=== PATIENT | male | born 1995 | race Caucasian/White ===

== ENCOUNTER 2017-01-04 21:11 | Emergency (ER) | payer SELFPAY ==
[2017-01-04] MEDS ORDERED: SODIUM CHLOR 0.9% 1000 ML INJ 1,000 ML IV ONE (21:21)
[2017-01-04 21:23] LABS: MEAN CORPUSCULAR HGB CONC 36.1 % (32.0-36.0)
[2017-01-04 21:28] VITALS: BP 136/74; PULSE 78; RESP 16; TEMP 97.7; O2SAT 100
[2017-01-04] MEDS ORDERED: PANTOPRAZOLE SODIUM 40 MG VIAL IVP ONE (21:30)
[2017-01-04] MEDS ORDERED: ONDANSETRON HCL 4 MG/2 ML VIAL IVP ONE (21:30)
[2017-01-04] MEDS ORDERED: LIDOCAINE VISCOUS 2% SOLN 15 ML UDC PO ONE (21:30)
[2017-01-04] MEDS ORDERED: FAMOTIDINE 20 MG/2 ML VIAL IV PUSH ONE (21:30)
[2017-01-04] MEDS ORDERED: ALUMINUM/MAGNESIUM/SIMETH 30 ML CUP PO ONE (21:30)
--- NOTE | 2017-01-04 21:42 | PD ---
HPI Chief Complaint: Abdominal Pain Time Seen by Provider: 21:39 Travel History International Travel<30 days: No Contact w/Intl Traveler<30days: No Traveled to known affect area: No History of Present Illness HPI 21-year-old male that presents to the ED via ambulance for evaluation of nausea vomiting and diarrhea. Per patient is started today about 2-3 hours ago. Per patient him and a coworker went to [employer] restaurant had some chicken. Per patient he felt fine afterwards but for the past 2-3 hours she's been throwing up and having diarrhea. Per patient he has severe epigastric pain when he has a bowel movement. Per patient he denies any blood. Patient has been throwing up yellow fluid. She denies any chest pain or shortness of breath. Some abdominal pain on the epigastric area. Pain per patient is 5 out of 10. He denies any blood in the diarrhea. He denies any urinary issues. No back pain. No fevers chills or sweats. No sick contacts. Per patient he cannot think of anything else that he might have eaten. Per patient his coworkers also sick but not as bad as him. He has no allergies to medication. He has not taken anything for this. He was given Zofran by [facility] Past Medical History ADHD: Yes Diminished Hearing: No Immunizations Current: Yes (school shots utd) Social History Alcohol Use: No Tobacco Use: No Substance Use: No Allergies-Medications (Allergen,Severity, Reaction): Coded Allergies: No Known Allergies (Verified , 06/08/13) Reported Meds & Prescriptions Reported Meds & Active Scripts Active No Active Prescriptions or Reported Medications Review of Systems Except as stated in HPI: all other systems reviewed are Neg Physical Exam Narrative GENERAL: SKIN: Warm and dry. HEAD: Atraumatic. Normocephalic. EYES: Pupils equal and round. No scleral icterus. No injection or drainage. ENT: No nasal bleeding or discharge. Mucous membranes pink and moist. Tongue is midline. No uvula deviation. NECK: Trachea midline. No JVD. CARDIOVASCULAR: Regular rate and rhythm. No murmurs, S3, S4. RESPIRATORY: No accessory muscle use. Clear to auscultation. Breath sounds equal bilaterally. GASTROINTESTINAL: Abdomen soft, tender to palpation on the epigastric region, nondistended. Hepatic and splenic margins not palpable. MUSCULOSKELETAL: Extremities without clubbing, cyanosis, or edema. No obvious deformities. Full range of motion of the upper and lower extremities bilaterally. 2+ pulses bilaterally. NEUROLOGICAL: Awake and alert. No obvious cranial nerve deficits. Motor grossly within normal limits. Five out of 5 muscle strength in the arms and legs. Normal speech. PSYCHIATRIC: Appropriate mood and affect; insight and judgment normal. Data Data Last Documented VS Vital Signs Date Time Temp Pulse Resp B/P Pulse Ox O2 Delivery O2 Flow Rate FiO2 01/04/17 21:28 97.7 78 16 136/74 100 Orders Complete Blood Count With Diff (01/04/17 21:21) Comprehensive Metabolic Panel (01/04/17 21:21) Lipase (01/04/17 21:21) Iv Access Insert/Monitor (01/04/17 21:21) Sodium Chlor 0.9% 1000 Ml Inj (Ns 1000 M (01/04/17 21:21) Ondansetron Inj (Zofran Inj) (01/04/17 21:30) Pantoprazole Inj (Protonix Inj) (01/04/17 21:30) Famotidine Inj (Pepcid Inj) (01/04/17 21:30) Al-Mag Hy-Si 40-40-4 Mg/Ml Liq (Mag-Al P (01/04/17 21:30) Lidocaine 2% Viscous (Xylocaine 2% Visco (01/04/17 21:30) Labs Laboratory Tests Test 01/04/17 21:23 White Blood Count 19.0 TH/MM3 Red Blood Count 5.40 MIL/MM3 Hemoglobin 16.1 GM/DL Hematocrit 44.5 % Mean Corpuscular Volume 82.4 FL Mean Corpuscular Hemoglobin 29.7 PG Mean Corpuscular Hemoglobin 36.1 % Concent Red Cell Distribution Width 12.6 % Platelet Count 308 TH/MM3 Mean Platelet Volume 8.5 FL Neutrophils (%) (Auto) 89.7 % Lymphocytes (%) (Auto) 5.2 % Monocytes (%) (Auto) 4.4 % Eosinophils (%) (Auto) 0.5 % Basophils (%) (Auto) 0.2 % Neutrophils # (Auto) 17.0 TH/MM3 Lymphocytes # (Auto) 1.0 TH/MM3 Monocytes # (Auto) 0.8 TH/MM3 Eosinophils # (Auto) 0.1 TH/MM3 Basophils # (Auto) 0.0 TH/MM3 CBC Comment AUTO DIFF Differential Comment AUTO DIFF CONFIRMED Sodium Level 139 MEQ/L Potassium Level 4.1 MEQ/L Chloride Level 106 MEQ/L Carbon Dioxide Level 22.3 MEQ/L Anion Gap 11 MEQ/L Blood Urea Nitrogen 15 MG/DL Creatinine 1.22 MG/DL Estimat Glomerular Filtration 76 ML/MIN Rate Random Glucose 107 MG/DL Calcium Level 9.1 MG/DL Total Bilirubin 2.3 MG/DL Aspartate Amino Transf 36 U/L (AST/SGOT) Alanine Aminotransferase 49 U/L (ALT/SGPT) Alkaline Phosphatase 80 U/L Total Protein 8.0 GM/DL Albumin 4.1 GM/DL Lipase 95 U/L [facility] Medical Decision Making Medical Screen Exam Complete: Yes Emergency Medical Condition: Yes Medical Record Reviewed: Yes Interpretation(s) CBC & BMP Diagram 01/04/17 21:23 LFTs showed high bili otherwise unremarcable. Lipase WNL Differential Diagnosis Food poisoning versus epigastric pain versus gastroenteritis versus gastritis versus less likely possible cholecystitis and pancreatitis Narrative Course 21-year-old male that presents to the ED for evaluation of possible food poisoning. Patient was properly examined and was found to have signs and symptoms which appear to be consistent with likely gastroenteritis from eating chicken. Labs and imaging ordered. Patient was given IV fluids as well as IV antiemetics and pain medication. Labs and imaging showed elevated level second brother was unremarkable. Patient was rechecked and was improved. Patient will be sent home with prescription for Zofran and Bentyl. Doesn't drink plenty of fluids. Follow with PCP. See ED if worsening symptoms. Diagnosis Primary Impression: Gastroenteritis Additional Impression: Food poisoning Qualified Code: T62.91XA - Food poisoning, accidental or unintentional, initial encounter Patient Instructions: General Instructions Additional Instructions: Drink plenty of fluids. Take medications as prescribed. Follow with PCP. See ED worsening symptoms. Med/Other Pt SpecificInfo: Prescription(s) given Scripts Dicyclomine (Bentyl)20 Mg Tab20 Mg PO TID #20 TAB Prov:Adriane Virgen MD 01/04/17 Ondansetron (Zofran)4 Mg Tab4 Mg PO Q6HR PRN (NAUSEA OR VOMITING) #20 TAB Prov:Adriane Virgen MD 01/04/17 Disposition: 01 DISCHARGE HOME Condition: Stable Alex Elizondo January 04, 2017 21:42
[2017-01-04 22:03] LABS: BASOPHIL % 0.2 % (0.0-2.0); EOSINOPHIL # 0.1 TH/MM3 (0-0.4); EOSINOPHIL % 0.5 % (0.0-4.0); HEMATOCRIT 44.5 % (39.0-51.0); LYMPH % 5.2 % (9.0-44.0); MEAN CELL VOLUME 82.4 FL (80.0-100.0); MEAN CORPUSCULAR HEMOGLOBIN 29.7 PG (27.0-34.0); MONO % 4.4 % (0.0-8.0); NEUT % 89.7 % (16.0-70.0); PLATELET COUNT 308 TH/MM3 (150-450); RED CELL DISTRIBUTION WIDTH 12.6 % (11.6-17.2)
[2017-01-04 22:06] LABS: HEMO FLAGS AUTO DIFF
[2017-01-04 22:31] LABS: SCAN/DIFF AUTO DIFF CONFIRMED
[2017-01-04 22:55] LABS: ALKALINE PHOSPHATASE 80 U/L (45-117); ALT (GPT) 49 U/L (9-52); ANION GAP 11 MEQ/L (5-15); AST (GOT) 36 U/L (15-39); BICARBONATE 22.3 MEQ/L (21.0-32.0); BLOOD UREA NITROGEN 15 MG/DL (7-18); CHLORIDE 106 MEQ/L (98-107); GLOMERULAR FILTRATION RATE 76 ML/MIN (>89); POTASSIUM 4.1 MEQ/L (3.5-5.1); SODIUM (NA) 139 MEQ/L (136-145); TOTAL BILIRUBIN ADULT 2.3 MG/DL (0.2-1.0)
[2017-01-04] MEDS ORDERED: ZOFR4TAB PO (22:56)
[2017-01-04] MEDS ORDERED: BENT20TA PO (22:56)
== END 2017-01-05 00:11 | disposition home or self-care (01) ==
LOC: NEPE 21:11
DX: T62.8X1A Toxic effect of other specified noxious substances eaten as food, accidental (unintentional), initial encounter (principal); K52.1 Toxic gastroenteritis and colitis; Y92.511 Restaurant or cafe as the place of occurrence of the external cause
CPT/HCPCS: 80053; 83690; 85025; 96374; 96375; 99284; C9113; J2405; J7030

== ENCOUNTER 2018-02-05 11:58 | Emergency (ER) | payer OTHER ==
[~2018-02-05 11:58] MED LIST: BENT20TA PO; ZOFR4TAB PO
[2018-02-05 12:03] VITALS: BP 122/64; PULSE 86; RESP 17; TEMP 97.9; O2SAT 99
--- NOTE | 2018-02-05 12:19 | PD ---
HPI Chief Complaint: Psychiatric Symptoms Time Seen by Provider: 12:18 Travel History International Travel<30 days: No Contact w/Intl Traveler<30days: No Traveled to known affect area: No History of Present Illness HPI 22-year-old male presents emergency department voluntarily for feelings of suicidal and homicidal ideation. Patient admits to taking oral anabolic steroids, along with his antidepressant, and he feels that he is a danger to himself or others currently. He denies any other significant medical complaints at this time. He denies any other drug use. He has no known drug allergies. PFSH Past Medical History ADHD: Yes Diminished Hearing: No Immunizations Current: Yes (school shots utd) Social History Alcohol Use: No Tobacco Use: No Substance Use: No Allergies-Medications (Allergen,Severity, Reaction): Coded Allergies: No Known Allergies (Verified , 06/08/13) Reported Meds & Prescriptions Reported Meds & Active Scripts Active Bentyl (Dicyclomine HCl) 20 Mg Tab 20 Mg PO TID Zofran (Ondansetron HCl) 4 Mg Tab 4 Mg PO Q6HR PRN Review of Systems Except as stated in HPI: all other systems reviewed are Neg General / Constitutional: No: Fever Eyes: No: Visual changes HENT: No: Headaches Cardiovascular: No: Chest Pain or Discomfort Respiratory: No: Shortness of Breath Gastrointestinal: No: Abdominal Pain Genitourinary: No: Dysuria Musculoskeletal: No: Pain Skin: No Rash Neurologic: No: Weakness Psychiatric: Positive: Anxiety, Suicidal Ideations, Substance Abuse (Anabolic steroid use), Homicidal Ideation, No: Depression Endocrine: No: Polydipsia Hematologic/Lymphatic: No: Easy Bruising Physical Exam Narrative GENERAL: Patient appears anxious but is cooperative and directable. He is requesting something to help calm him down. SKIN: Warm and dry. Normal color. Normal turgor HEAD: Atraumatic. Normocephalic. EYES: Pupils equal and round. No scleral icterus. No injection or drainage. ENT: No nasal bleeding or discharge. Mucous membranes pink and moist. Pharynx is clear. Airways patent NECK: Trachea midline. Supple and nontender. CARDIOVASCULAR: Regular rate and rhythm. RESPIRATORY: No accessory muscle use. Clear to auscultation. Breath sounds equal bilaterally. GASTROINTESTINAL: Abdomen soft, non-tender, nondistended. Hepatic and splenic margins not palpable. MUSCULOSKELETAL: Extremities without clubbing, cyanosis, or edema. No obvious deformities. NEUROLOGICAL: Awake and alert. No obvious cranial nerve deficits. Motor grossly within normal limits. Five out of 5 muscle strength in the arms and legs. Normal speech. PSYCHIATRIC: Appropriate mood and affect; insight and judgment normal. Data Data Last Documented VS Vital Signs Date Time Temp Pulse Resp B/P (MAP) Pulse Ox O2 Delivery O2 Flow Rate FiO2 02/05/18 12:03 97.9 86 17 122/64 (83) 99 Orders Orders Complete Blood Count With Diff (02/05/18 12:16) Comprehensive Metabolic Panel (02/05/18 12:16) Thyroid Stimulating Hormone (02/05/18 12:16) Urinalysis - C+S If Indicated (02/05/18 12:16) Psych Screen (02/05/18 12:16) Lorazepam Inj (Ativan Inj) (02/05/18 12:30) Drug Screen, Random Urine (02/05/18 12:16) MDM Medical Decision Making Medical Screen Exam Complete: Yes Emergency Medical Condition: Yes Differential Diagnosis Anabolic steroid use. Anxiety. Suicidal ideation. Homicidal ideation. Narrative Course Patient appears medically stable at time of exam. Psychiatric labs ordered per protocol. Patient is given 2 mg lorazepam IM. Patient is medically cleared for psychiatric evaluation. Psych screen is ordered. Condition: Stable Pedro Shafer Feb 05, 2018 12:19
[2018-02-05] MEDS ORDERED: LORazepam 2 MG/ML VIAL IM ONE (12:30)
[2018-02-05 13:47] LABS: AUTOMATED NEUTROPHIL # 3.9 TH/MM3 (1.8-7.7); BASOPHIL # 0.1 TH/MM3 (0-0.2); EOSINOPHIL # 0.1 TH/MM3 (0-0.4); EOSINOPHIL % 0.8 % (0.0-4.0); HEMATOCRIT 46.1 % (39.0-51.0); HEMOGLOBIN 15.8 GM/DL (13.0-17.0); LYMPH % 29.4 % (9.0-44.0); MEAN CELL VOLUME 87.9 FL (80.0-100.0); MEAN CORPUSCULAR HEMOGLOBIN 30.2 PG (27.0-34.0); MEAN CORPUSCULAR HGB CONC 34.4 % (32.0-36.0); MEAN PLATELET VOLUME 8.1 FL (7.0-11.0); MONO % 9.4 % (0.0-8.0); MONOCYTE # 0.6 TH/MM3 (0-0.9); NEUT % 59.4 % (16.0-70.0); PLATELET COUNT 317 TH/MM3 (150-450); RED BLOOD COUNT 5.24 MIL/MM3 (4.50-5.90); RED CELL DISTRIBUTION WIDTH 12.8 % (11.6-17.2); WHITE BLOOD COUNT 6.6 TH/MM3 (4.0-11.0)
[2018-02-05 13:52] LABS: BILIRUBIN, URINE NEG (NEG); BLOOD, URINE NEG (NEG); GLUCOSE,URINE NEG (NEG); KETONE, URINE NEG (NEG); MUCUS URINE FEW /lpf (OCC); NITRITE,URINE NEG (NEG); PH, URINE 7.5 (5.0-8.5); URINE COLOR YELLOW (YELLW/STRAW); URINE LEUKOCYTE ESTERASE NEG (NEG)
[2018-02-05 14:06] LABS: ALBUMIN 4.3 GM/DL (3.4-5.0); AST (GOT) 38 U/L (15-37); BICARBONATE 27.2 MEQ/L (21.0-32.0); BLOOD UREA NITROGEN 17 MG/DL (7-18); CALCIUM 9.2 MG/DL (8.5-10.1); CHLORIDE 100 MEQ/L (98-107); CREATININE 1.11 MG/DL (0.60-1.30); GLOMERULAR FILTRATION RATE 84 ML/MIN (>89); GLUCOSE,RANDOM 91 MG/DL (74-106); SODIUM (NA) 136 MEQ/L (136-145)
[2018-02-05 14:08] LABS: ALT (GPT) 109 U/L (12-78)
[2018-02-05 14:16] LABS: ALKALINE PHOSPHATASE 66 U/L (45-117); TOTAL BILIRUBIN ADULT 0.6 MG/DL (0.2-1.0); TOTAL PROTEIN 7.8 GM/DL (6.4-8.2)
[2018-02-05 15:44] VITALS: BP 129/69; PULSE 74; RESP 20; TEMP 97.9; O2SAT 100
[2018-02-05 17:42] VITALS: BP 114/59; PULSE 60; RESP 16; O2SAT 98
[2018-02-05] MEDS ORDERED: NICOTINE 21 MG/24 HR PATCH T-DERMAL ONE (19:45)
[2018-02-05] MEDS ORDERED: diphenhydrAMINE HCL 50 MG CAP PO ONE (19:45)
[2018-02-05] MEDS ORDERED: SERT-129 PO (21:27)
[2018-02-05] MEDS ORDERED: SERTRALINE HCL 100 MG TAB PO ONE (21:45)
[2018-02-05 22:23] VITALS: BP 111/68; PULSE 66; RESP 16; O2SAT 97
[2018-02-06 02:15] VITALS: BP 110/64; PULSE 54; RESP 18; O2SAT 99
[2018-02-06 06:28] VITALS: BP 129/59; PULSE 58; RESP 16; O2SAT 99
--- NOTE | 2018-02-06 11:23 | PD ---
Physical Exam Date Seen by Provider: Feb 06, 2018 Time Seen by Provider: 11:22 Narrative 22-year-old male previously medically clear for psychiatric evaluation, has been seen and evaluated by psychiatric staff and deemed psychiatrically stable for discharge at this time. Patient remains medically stable for discharge at this time. Follow-up will be based on psychiatric note. Data Data Last Documented VS Vital Signs Date Time Temp Pulse Resp B/P (MAP) Pulse Ox O2 Delivery O2 Flow Rate FiO2 02/06/18 06:28 58 16 129/59 (82) 99 Room Air 02/05/18 15:44 97.9 Orders Orders Complete Blood Count With Diff (02/05/18 12:16) Comprehensive Metabolic Panel (02/05/18 12:16) Thyroid Stimulating Hormone (02/05/18 12:16) Urinalysis - C+S If Indicated (02/05/18 12:16) Psych Screen (02/05/18 12:16) Lorazepam Inj (Ativan Inj) (02/05/18 12:30) Drug Screen, Random Urine (02/05/18 12:16) Nicotine 21 Mg Patch.24 Hr (Habitrol 21 (02/05/18 19:45) Diphenhydramine (Benadryl) (02/05/18 19:45) Sertraline (Zoloft) (02/05/18 21:45) Diet Regular Basic (02/06/18 Breakfast) Diet Regular Basic (02/06/18 Lunch) Labs Laboratory Tests Test 02/05/18 13:10 White Blood Count 6.6 TH/MM3 Red Blood Count 5.24 MIL/MM3 Hemoglobin 15.8 GM/DL Hematocrit 46.1 % Mean Corpuscular Volume 87.9 FL Mean Corpuscular Hemoglobin 30.2 PG Mean Corpuscular Hemoglobin Concent 34.4 % Red Cell Distribution Width 12.8 % Platelet Count 317 TH/MM3 Mean Platelet Volume 8.1 FL Neutrophils (%) (Auto) 59.4 % Lymphocytes (%) (Auto) 29.4 % Monocytes (%) (Auto) 9.4 % Eosinophils (%) (Auto) 0.8 % Basophils (%) (Auto) 1.0 % Neutrophils # (Auto) 3.9 TH/MM3 Lymphocytes # (Auto) 2.0 TH/MM3 Monocytes # (Auto) 0.6 TH/MM3 Eosinophils # (Auto) 0.1 TH/MM3 Basophils # (Auto) 0.1 TH/MM3 CBC Comment DIFF FINAL Differential Comment Urine Color YELLOW Urine Turbidity CLEAR Urine pH 7.5 Urine Specific [place] 1.011 Urine Protein NEG mg/dL Urine Glucose (UA) NEG mg/dL Urine Ketones NEG mg/dL Urine Occult Blood NEG Urine Nitrite NEG Urine Bilirubin NEG Urine Urobilinogen LESS THAN 2.0 MG/DL Urine Leukocyte Esterase NEG Urine WBC LESS THAN 1 /hpf Urine Mucus FEW /lpf Microscopic Urinalysis Comment CULT NOT INDICATED Blood Urea Nitrogen 17 MG/DL Creatinine 1.11 MG/DL Random Glucose 91 MG/DL Total Protein 7.8 GM/DL Albumin 4.3 GM/DL Calcium Level 9.2 MG/DL Alkaline Phosphatase 66 U/L Aspartate Amino Transf (AST/SGOT) 38 U/L Alanine Aminotransferase (ALT/SGPT) 109 U/L Total Bilirubin 0.6 MG/DL Sodium Level 136 MEQ/L Potassium Level 4.1 MEQ/L Chloride Level 100 MEQ/L Carbon Dioxide Level 27.2 MEQ/L Anion Gap 9 MEQ/L Estimat Glomerular Filtration Rate 84 ML/MIN Thyroid Stimulating Hormone 3rd Gen 2.360 uIU/ML Urine Opiates Screen NEG Urine Barbiturates Screen NEG Urine Amphetamines Screen NEG Urine Benzodiazepines Screen NEG Urine Cocaine Screen NEG Urine Cannabinoids Screen NEG MDM Medical Record Reviewed: Yes Supervised Visit with ADARSH: Yes Narrative Course 22-year-old male previously medically clear for psychiatric evaluation, has been seen and evaluated by psychiatric staff and deemed psychiatrically stable for discharge at this time. Patient remains medically stable for discharge at this time. Follow-up will be based on psychiatric note. Diagnosis Primary Impression: Anxiety Patient Instructions: General Instructions, Suicide Prevention for Adults (ED) , Anxiety (ED) Departure Forms: Tests/Procedures Additional Instruction: Follow up with private psychiatrist and counselor per [facility]. Follow up with primary care clinic as needed. Stop using all steroids. Return to ED for any worsening. Disposition: 01 DISCHARGE HOME Condition: Stable Pedro Shafer Feb 06, 2018 11:23
--- NOTE | 2018-02-06 11:25 | PD ---
History of Present Illness Chief Complaint: Psychiatric Symptoms Time Seen by Provider: 10:45 Travel History International Travel<30 Days: No Contact w/Intl Traveler<30days: No Known affected area: No Legal Status Legal Status: Voluntary History of Present Illness: History of Present Illness HPI 22-year-old , single male with reported history of ADHD, presents emergency department voluntarily for feelings of suicidal and homicidal ideation for the past 1-1/2 week. Patient admits to taking oral anabolic steroids, along with his antidepressant Zoloft, and he feels that he is a danger to himself or others currently. Patient also reports that intermittently he has been taking prescribed amphetamines. He denies any other significant medical complaints at this time. Patient was monitored here in the ED and presented no behavioral concerns and no suicidality. Collateral information was obtained from the father who has no concerns if the patient were to be discharge. Patient is seen. He is alert, oriented male who is maintaining hygiene. He is engaging and cooperative. He admits that when he came to the hospital he was feeling somewhat anxious, slightly agitated, questioning his existence and having vague suicidal ideation. He now is reporting that he is feeling well. He is no longer feeling agitated or anxious. Speech is clear, logical, normal rate and tone he is no longer having any suicidal or homicidal ideation, intent or plan. He states" I have a lot to live for. I have 3 brothers 1 of whom is graduating and leaving the state". The patient does not present any evidence of any psychosis or john. PFSH Past Medical History ADHD: Yes Diminished Hearing: No Immunizations Current: Yes (school shots utd) Influenza Vaccination: No Past Surgical History Surgical History: No Previous Surgery Psychiatric History Psychiatric History Hx Psychiatric Treatment: Diagnosed with H ADHD as a child. Has been prescribed Zoloft by Dr. Menendez. History of Inpatient Treatment: No Guns or firearms in home: No Social History Single male. Completed 10th grade. Works at a car [employer]. Hx Alcohol Use: No Hx Tobacco Use: No (ECIG) Hx Substance Use: Yes (01/30/18) Substance Use Type: Alcohol, Marijuana Other Substances Used: Negative toxicology Hx of Substance Use Treatment: No Family Psychiatric History None Allergies-Medications (Allergen,Severity, Reaction): Coded Allergies: No Known Allergies (Verified Allergy, Unknown, 02/05/18) Reported Meds & Prescriptions Reported Meds & Active Scripts Active Reported Sertraline (Sertraline HCl) 100 Mg Tab 200 Mg PO HS Review of Systems Psychiatric: COMPLAINS OF: Anxiety Except as stated in HPI: all other systems reviewed are Neg Mental Status Examination Appearance: Appropriate Consciousness: Alert Orientation: x4 Motor Activity: Normal gait Speech: Unremarkable Language: Adequate Fund of Knowledge: Adequate Attention and Concentration: Adequate Memory: Unremarkable Mood: Appropriate Affect: Appropriate Thought Process & Associations: Intact, Logical, Goal directed Thought Content: Appropriate Hallucination Type: None Delusion Type: None Suicidal Ideation: No Suicidal Plan: No Suicidal Intention: No Homicidal Ideation: No Homicidal Plan: No Homicidal Intention: No Insight: Fair Judgment: Adequate MDM Medical Decision Making Medical Record Reviewed: Yes Assessment/Plan 22-year-old , single male with reported history of ADHD, presents emergency department voluntarily for feelings of suicidal and homicidal ideation for the past 1-1/2 week. Patient admits to taking oral anabolic steroids, along with his antidepressant Zoloft, and he feels that he is a danger to himself or others currently. Patient also reports that intermittently he has been taking prescribed amphetamines. He denies any other significant medical complaints at this time. Patient was monitored here in the ED and presented no behavioral concerns and no suicidality. Collateral information was obtained from the father who has no concerns if the patient were to be discharge. Patient does not present evidence of unstable mental illness. He is advised to follow up with his outpatient psychiatric provider and to discontinue supplements until he consults his outpatient psychiatrist . Orders Orders Complete Blood Count With Diff (02/05/18 12:16) Comprehensive Metabolic Panel (02/05/18 12:16) Thyroid Stimulating Hormone (02/05/18 12:16) Urinalysis - C+S If Indicated (02/05/18 12:16) Psych Screen (02/05/18 12:16) Lorazepam Inj (Ativan Inj) (02/05/18 12:30) Drug Screen, Random Urine (02/05/18 12:16) Nicotine 21 Mg Patch.24 Hr (Habitrol 21 (02/05/18 19:45) Diphenhydramine (Benadryl) (02/05/18 19:45) Sertraline (Zoloft) (02/05/18 21:45) Diet Regular Basic (02/06/18 Breakfast) Results Vital Signs Date Time Temp Pulse Resp B/P (MAP) Pulse Ox O2 Delivery O2 Flow Rate FiO2 02/06/18 06:28 58 16 129/59 (82) 99 Room Air 02/06/18 02:15 54 18 110/64 (79) 99 02/05/18 22:23 66 16 111/68 (82) 97 Room Air 02/05/18 17:42 60 16 114/59 (77) 98 Room Air 02/05/18 15:44 97.9 74 20 129/69 (89) 100 Room Air 02/05/18 12:03 97.9 86 17 122/64 (83) 99 Laboratory Tests Test 02/05/18 13:10 White Blood Count 6.6 Red Blood Count 5.24 Hemoglobin 15.8 Hematocrit 46.1 Mean Corpuscular Volume 87.9 Mean Corpuscular Hemoglobin 30.2 Mean Corpuscular Hemoglobin Concent 34.4 Red Cell Distribution Width 12.8 Platelet Count 317 Mean Platelet Volume 8.1 Neutrophils (%) (Auto) 59.4 Lymphocytes (%) (Auto) 29.4 Monocytes (%) (Auto) 9.4 Eosinophils (%) (Auto) 0.8 Basophils (%) (Auto) 1.0 Neutrophils # (Auto) 3.9 Lymphocytes # (Auto) 2.0 Monocytes # (Auto) 0.6 Eosinophils # (Auto) 0.1 Basophils # (Auto) 0.1 CBC Comment DIFF FINAL Differential Comment Urine Color YELLOW Urine Turbidity CLEAR Urine pH 7.5 Urine Specific [place] 1.011 Urine Protein NEG Urine Glucose (UA) NEG Urine Ketones NEG Urine Occult Blood NEG Urine Nitrite NEG Urine Bilirubin NEG Urine Urobilinogen LESS THAN 2.0 Urine Leukocyte Esterase NEG Urine WBC LESS THAN 1 Urine Mucus FEW Microscopic Urinalysis Comment CULT NOT INDICATED Blood Urea Nitrogen 17 Creatinine 1.11 Random Glucose 91 Total Protein 7.8 Albumin 4.3 Calcium Level 9.2 Alkaline Phosphatase 66 Aspartate Amino Transf (AST/SGOT) 38 Alanine Aminotransferase (ALT/SGPT) 109 Total Bilirubin 0.6 Sodium Level 136 Potassium Level 4.1 Chloride Level 100 Carbon Dioxide Level 27.2 Anion Gap 9 Estimat Glomerular Filtration Rate 84 Thyroid Stimulating Hormone 3rd Gen 2.360 Urine Opiates Screen NEG Urine Barbiturates Screen NEG Urine Amphetamines Screen NEG Urine Benzodiazepines Screen NEG Urine Cocaine Screen NEG Urine Cannabinoids Screen NEG Diagnosis Primary Impression: Anxiety Psychiatrically Cleared: Yes Departure Forms: Tests/Procedures Patient Instructions: General Instructions Med/ Other Pt Specific Info: No Change to Meds Disposition: 01 DISCHARGE HOME Condition: Stable Claudia Galvan [facility] Feb 06, 2018 11:24
== END 2018-02-06 11:40 | disposition home or self-care (01) ==
LOC: NEPD 11:58 → NEPJ 02-06 11:40
DX: F41.9 Anxiety disorder, unspecified (principal); F90.9 Attention-deficit hyperactivity disorder, unspecified type; R45.851 Suicidal ideations; R45.850 Homicidal ideations; F12.90 Cannabis use, unspecified, uncomplicated; Z79.899 Other long term (current) drug therapy
CPT/HCPCS: 80053; 80307; 81001; 84443; 85025; 96372; 99283; J2060